=== PATIENT | male | born 1970 | race Caucasian/White ===

== ENCOUNTER → 2017-08-27 | Outpatient (CLI) | payer BC, OTHER ==
[2017-08-27 18:19] LABS: BASO % 0.2 % (0.0-1.0); EOS % 0.1 % (0.0-3.0); HEMATOCRIT 48.1 % (42.0-52.0); HEMOGLOBIN 16.6 g/dl (14.0-18.0); IMMATURE GRANULOCYTE % 0.5 % (0-3.0); LYMPH # 1.4 10^3/uL (1.5-4.5); LYMPH % 10.4 % (24.0-44.0); MEAN CORPUSCULAR HGB CONC 34.5 g/dl (32.0-36.5); MEAN CORPUSCULAR VOLUME 84.1 fl (80.0-96.0); MONO # 0.6 10^3/uL (0.0-0.8); MONO % 4.5 % (0.0-5.0); NEUTROPHILS # 11.3 10^3/uL (1.8-7.7); NEUTROPHILS % 84.3 % (36.0-66.0); PLATELET COUNT, AUTOMATED 220 10^3/uL (150-450); RED BLOOD COUNT 5.72 10^6/uL (4.30-6.10); RED CELL DISTRIBUTION WIDTH 12.2 % (11.5-14.5); WHITE BLOOD COUNT 13.4 10^3/uL (4.0-10.0)
== END ==
LOC: M ADAMS 16:48
DX: J01.90 Acute sinusitis, unspecified (principal)

== ENCOUNTER 2024-08-30 11:56 | Inpatient (IN) | payer BC, OTHER ==
[2024-08-30] VITALS (17 sets, daily range): BP systolic 127–170; BP diastolic 56–98; TEMP 97.2–99.5; O2SAT 94–97
[2024-08-30] MEDS ORDERED: ISOVUE-370 76% 100ML VIAL As Ordered ONE (12:29)
[2024-08-30 12:46] LABS: BASO % 0.2 % (0.0-1.0); EOS % 0.1 % (0.0-3.0); HEMATOCRIT 46.6 % (42.0-52.0); HEMOGLOBIN 15.8 g/dl (13.5-17.5); LYMPH # 1.1 10^3/uL (1.5-5.0); LYMPH % 11.7 % (24.0-44.0); MEAN CORPUSCULAR HEMOGLOBIN 29.5 pg (27.0-33.0); MEAN CORPUSCULAR HGB CONC 33.9 g/dl (32.0-36.5); MEAN CORPUSCULAR VOLUME 86.9 fl (80.0-96.0); MONO # 0.9 10^3/uL (0.0-0.8); MONO % 10.2 % (2.0-8.0); NEUTROPHILS # 6.9 10^3/uL (1.5-8.5); NEUTROPHILS % 77.5 % (36.0-66.0); PLATELET COUNT, AUTOMATED 166 10^3/uL (150-450); RED BLOOD COUNT 5.36 10^6/uL (4.30-6.10)
[2024-08-30 13:01] LABS: INR 1.08; PROTHROMBIN TIME 14.4 SECONDS (12.5-14.5)
[2024-08-30 13:09] LABS: ALBUMIN 3.6 G/DL (3.2-5.2); ALKALINE PHOSPHATASE 53 U/L (40-129); ALT/SGPT 30 U/L (7.0-40); AST/SGOT 26 U/L (<34); BILIRUBIN,DIRECT 0.1 MG/DL (<0.4); BILIRUBIN,TOTAL 0.5 MG/DL (0.3-1.2); BLOOD UREA NITROGEN 17 MG/DL (9-23); CALCIUM LEVEL 8.8 MG/DL (8.5-10.1); CARBON DIOXIDE LEVEL 27 MMOL/L (20-31); CHLORIDE LEVEL 101 MMOL/L (98-107); CK-MB VALUE MASS < 1.0 NG/ML (<3.6); CREATININE FOR GFR 0.87 MG/DL (0.70-1.30); GLOMERULAR FILTRATION RATE > 60.0 (>56); GLUCOSE, FASTING 119 MG/DL (60-100); POTASSIUM SERUM 3.8 MMOL/L (3.5-5.1); SODIUM LEVEL 138 MMOL/L (136-145); TOTAL PROTEIN 7.3 G/DL (5.7-8.2)
[2024-08-30 13:13] LABS: THYROID STIMULATING HORMONE 1.318 uIU/ML (0.55-4.78)
[2024-08-30 13:14] LABS: CPK CREATINE PHOSPHOKINASE 207 U/L (46-171); FREE T4 1.06 NG/DL (0.89-1.76); MB/CK RELATIVE INDEX 0.48 (< OR =4)
[2024-08-30 13:19] LABS: ABG BASE EXCESS -0.1 (-2.0-2.0); ABG O2 SATURATION 96.1 % (95.0-99.0); ABG PARTIAL PRESSURE CO2 38.1 mmHg (35.0-45.0); ABG PARTIAL PRESSURE O2 80.8 mmHg (75.0-100.0); ABG STANDARD HCO3 24.3 MMOL/L. (22.0-26.0); ABG TOTAL CO2 25.2 MMOL/L (22.0-29.0); ABG pH (ARTERIAL) 7.418 UNITS (7.350-7.450)
[2024-08-30] MEDS: TENECTEPLASE 50 MG/10 ML VIAL IVP ONE (13:21)
[2024-08-30] MEDS: SODIUM CHLORIDE 0.9% INJ 10 ML SYR IV ONE ×2 (13:27)
[2024-08-30] MEDS: ACETAMINOPHEN *IV* 1,000 MG in IV 1 EA IV ONE (13:54)
[2024-08-30 14:15] LABS: KETONE, URINE AUTO RFX TRACE mg/dL (NEGATIVE); LEUKOCYTE ESTERASE UR AUTO RFX NEGATIVE (NEGATIVE); MUCUS, URINE RFX SMALL (NEGATIVE); NITRITE, URINE AUTO RFX NEGATIVE (NEGATIVE); RBC, URINE AUTO RFX 12 /HPF (0-3); SQUAM EPITHELIAL CELL UR AURFX 0 /HPF (0-6); WBC, URINE AUTO RFX 0 /HPF (0-3)
[2024-08-30 14:28] LABS: AMPHETAMINES LEVEL URINE NEGATIVE (NEGATIVE); BARBITURATES URINE NEGATIVE (NEGATIVE)
[2024-08-30 14:29] LABS: BENZODIAZEPINES URINE NEGATIVE (NEGATIVE); CANNABINOIDS URINE NEGATIVE (NEGATIVE); COCAINE METABOLITE URINE NEGATIVE (NEGATIVE); METHADONE URINE NEGATIVE (NEGATIVE); OPIATES URINE NEGATIVE (NEGATIVE); PHENCYCLIDINE URINE NEGATIVE (NEGATIVE)
[2024-08-30 14:31] LABS: CK-MB VALUE MASS < 1.0 NG/ML (<3.6)
[2024-08-30 14:35] LABS: CPK CREATINE PHOSPHOKINASE 205 U/L (46-171); MB/CK RELATIVE INDEX 0.48 (< OR =4)
[2024-08-30] MEDS: cefTRIAXone SOD 2 GM in DEXTROSE 5% (D5W) ADV/MINI-BAG 50 ML IV ONE (15:35)
[2024-08-30] MEDS ORDERED: HOME MED LIST COMPLETE! XX SCH (16:50)
[2024-08-30] MEDS: OSELTAMIVIR 6 MG/ML SUSP PO ONE (16:53)
[2024-08-30] MEDS: NS (Normal Saline) 0.9% 1,000 ML IV SCH (17:18)
[2024-08-30 18:18] LABS: C REACTIVE PROTEIN QUANTITATIV 2.39 MG/DL (<1.0)
[2024-08-30 18:25] LABS: PROCALCITONIN 0.15 ng/ml
[2024-08-30] MEDS ORDERED: niCARdipine IV 40 MG in IV 1 EA IV SCH (19:10)
[2024-08-31] VITALS (18 sets, daily range): BP systolic 129–170; BP diastolic 65–94; TEMP 97–100.5; O2SAT 90–97
[2024-08-31] MEDS: ACETAMINOPHEN *IV* 1,000 MG in IV 1 EA IV ONE (03:08)
[2024-08-31] MEDS: OSELTAMIVIR PHOSPHATE 75 MG CAP PO SCH (06:30)
[2024-08-31 08:46] LABS: BASO % 0.5 % (0.0-1.0); EOS % 0.3 % (0.0-3.0); HEMATOCRIT 43.4 % (42.0-52.0); HEMOGLOBIN 14.9 g/dl (13.5-17.5); LYMPH # 1.1 10^3/uL (1.5-5.0); LYMPH % 18.2 % (24.0-44.0); MEAN CORPUSCULAR HEMOGLOBIN 29.6 pg (27.0-33.0); MEAN CORPUSCULAR HGB CONC 34.3 g/dl (32.0-36.5); MEAN CORPUSCULAR VOLUME 86.3 fl (80.0-96.0); MONO # 0.9 10^3/uL (0.0-0.8); MONO % 15.8 % (2.0-8.0); NEUTROPHILS # 3.7 10^3/uL (1.5-8.5); PLATELET COUNT, AUTOMATED 158 10^3/uL (150-450); RED BLOOD COUNT 5.03 10^6/uL (4.30-6.10); WHITE BLOOD COUNT 5.8 10^3/uL (4.0-10.0)
[2024-08-31] MEDS ORDERED: ASPIRIN 81MG ENTERIC TABLET PO SCH (09:00)
[2024-08-31] MEDS: PANTOPRAZOLE 40MG VIAL IV SCH (09:13)
[2024-08-31 09:16] LABS: PROCALCITONIN 0.15 ng/ml
[2024-08-31 09:32] LABS: ALBUMIN 3.2 G/DL (3.2-5.2); ALKALINE PHOSPHATASE 46 U/L (40-129); ALT/SGPT 24 U/L (7.0-40); AST/SGOT 24 U/L (<34); BILIRUBIN,TOTAL 0.5 MG/DL (0.3-1.2); BLOOD UREA NITROGEN 12 MG/DL (9-23); CALCIUM LEVEL 8.1 MG/DL (8.5-10.1); CARBON DIOXIDE LEVEL 26 MMOL/L (20-31); CHLORIDE LEVEL 105 MMOL/L (98-107); GLOMERULAR FILTRATION RATE > 60.0 (>56); GLUCOSE, FASTING 96 MG/DL (60-100); POTASSIUM SERUM 3.9 MMOL/L (3.5-5.1); SODIUM LEVEL 141 MMOL/L (136-145); TOTAL PROTEIN 6.6 G/DL (5.7-8.2)
[2024-08-31] MEDS ORDERED: cefTRIAXone SOD 2 GM in DEXTROSE 5% (D5W) ADV/MINI-BAG 50 ML IV SCH (16:00)
[2024-08-31 18:30] LABS: HEMOGLOBIN A1c 5.2 % (4.0-6.0)
[2024-08-31] MEDS: ASPIRIN 81MG ENTERIC TABLET PO SCH (20:47)
[2024-08-31] MEDS: ATORVASTATIN 20 MG TAB PO SCH (20:47)
[2024-09-01] VITALS: BP 140/76; TEMP 98.4; O2SAT 95
[2024-09-01 04:00] VITALS: BP 133/78; TEMP 98.9; O2SAT 95
[2024-09-01 04:36] LABS: BASO % 0.4 % (0.0-1.0); EOS # 0.1 10^3/uL (0.0-0.5); EOS % 1.4 % (0.0-3.0); HEMATOCRIT 43.5 % (42.0-52.0); HEMOGLOBIN 15.1 g/dl (13.5-17.5); LYMPH # 1.4 10^3/uL (1.5-5.0); LYMPH % 26.6 % (24.0-44.0); MEAN CORPUSCULAR HEMOGLOBIN 29.8 pg (27.0-33.0); MEAN CORPUSCULAR HGB CONC 34.7 g/dl (32.0-36.5); MONO # 0.7 10^3/uL (0.0-0.8); MONO % 13.8 % (2.0-8.0); NEUTROPHILS # 2.9 10^3/uL (1.5-8.5); NEUTROPHILS % 57.6 % (36.0-66.0); PLATELET COUNT, AUTOMATED 149 10^3/uL (150-450); RED BLOOD COUNT 5.06 10^6/uL (4.30-6.10); WHITE BLOOD COUNT 5.1 10^3/uL (4.0-10.0)
[2024-09-01 04:59] LABS: BLOOD UREA NITROGEN 14 MG/DL (9-23); CALCIUM LEVEL 8.3 MG/DL (8.5-10.1); CARBON DIOXIDE LEVEL 28 MMOL/L (20-31); CHLORIDE LEVEL 106 MMOL/L (98-107); CHOLESTEROL LEVEL 211 MG/DL (<200); CHOLESTEROL RISK RATIO 5.14 (<5); CREATININE FOR GFR 0.82 MG/DL (0.70-1.30); GLOMERULAR FILTRATION RATE > 60.0 (>56); GLUCOSE, FASTING 101 MG/DL (60-100); POTASSIUM SERUM 3.9 MMOL/L (3.5-5.1); SODIUM LEVEL 142 MMOL/L (136-145); TRIGLYCERIDES LEVEL 100 MG/DL (<150)
[2024-09-01 08:00] VITALS: BP 131/70; TEMP 97.2; O2SAT 96
[2024-09-01 09:13] VITALS: BP 131/70
[2024-09-01] MEDS: ENOXAPARIN 40MG/0.4ML SYRINGE (J1650 PER 10MG) SC SCH (09:14)
[2024-09-01] MEDS ORDERED: ATOR80TA59 PO (09:20)
[2024-09-01] MEDS ORDERED: AMLO25TA PO (09:20)
[2024-09-01] MEDS ORDERED: OSEL75CA2 PO (09:20)
[2024-09-01] MEDS ORDERED: ASPI81TAEC PO (09:20)
== END 2024-09-01 10:15 | disposition home or self-care (01) | DRG 723 ==
LOC: M ED 11:56 → M ED INP 15:36 → M ICU 21:13
PROVIDERS: ADMIT Internal Medicine Critical Care Medicine; ATTEND Internal Medicine
DX: J11.81 Influenza due to unidentified influenza virus with encephalopathy (principal); R47.01 Aphasia; I10 Essential (primary) hypertension; F43.0 Acute stress reaction